=== PATIENT | male | born 1965 | race Caucasian/White ===

== ENCOUNTER → 2019-01-08 16:03 | Outpatient (CLI) | payer OTHER, SELFPAY ==
--- NOTE | 2019-01-08 16:45 | MRI_ITS ---
STUDY: MRI BRAIN WITH AND WITHOUT CONTRAST REASON FOR EXAM: Male, 53 years old. Diminished smell TECHNIQUE: Standardized multiplanar fat and water weighted pulse sequences were obtained. 17cc Dotarem iv was administered for the contrast portion of the examination. COMPARISON: None. FINDINGS: Normal size of the ventricles and extra-axial spaces for the patient's age. Normal white matter tracts of the supratentorial brain. Normal bilateral basal ganglia. Normal thalami. There is no extra-axial fluid accumulation. Normal flow voids within the major intracranial circulation suggesting patency by spin echo criteria. Normal venous enhancement. There is no enhancing intra-axial or extra-axial abnormality. Empty sella deformity of uncertain clinical significance. Normal, infundibular stalk, optic chiasm and hypothalamus. Normal tectal plate and pineal gland. Normal midbrain, kyle and medulla. Normal cerebellum. Normal basal cisterns. Normal bilateral temporal bones. Normal bilateral internal auditory canals. No demonstrated orbital abnormality, within the constraints of a routine brain study. There is a small mucous retention cyst in the right maxillary sinus. There is minor mucosal thickening within the ethmoid and sphenoid sinuses.. Normal calvarium and skull base. Normal visualized soft tissue structures. Normal visualized upper cervical spine. MRI/Brain W/WO Contrast IMPRESSION: Empty sella deformity of uncertain significance Otherwise normal MRI of the brain with without contrast. Mild right maxillary and bilateral ethmoid and sphenoid sinus disease Electronically Signed: Malcolm Valencia MD at 18:20 EST , Service support ,
== END ==
PROVIDERS: Referring Provider Otolaryngology Otolaryngology/Facial Plastic Surgery; Visit Provider Otolaryngology Otolaryngology/Facial Plastic Surgery
DX: R43.0 Anosmia (principal)
CPT/HCPCS: 70553; A9575

== ENCOUNTER → 2019-01-27 16:21 | Outpatient (CLI) | payer OTHER, SELFPAY ==
[2015-12-01 07:28] VITALS: BMI 30.9
--- NOTE | 2019-01-27 16:32 | EKG12_ITS ---
Test Reason : PREOP Blood Pressure : / mmHG Vent. Rate : 077 BPM Atrial Rate : 077 BPM P-R Int : 168 ms QRS Dur : 090 ms QT Int : 388 ms P-R-T Axes : 062 047 047 degrees QTc Int : 439 ms Normal sinus rhythm Normal ECG Confirmed by KENYA KLINE, YOVANY ([id number]), supervising editor news reel SETH SALAS [id number]) on 01/28/2019 9:43:53 AM Referred By: Luis Espinoza Confirmed By:YOVANY ZAMBRANO MD
[2019-01-27 17:07] LABS: Hematocrit 44.1 % (40-54); Mean Corp Hgb Conc 36.3 g/dL (32-36); Mean Corpuscular Volume 93.6 fL (80-94); Mean Platelet Vol. 9.7 fl (6.2-12.0); Platelet Count 179 K/mm3 (150-450); RBC Distribution Width CV 12.1 % (11.6-14.6); RBC Distribution Width SD 41.7 fl (35.1-43.9); Red Blood Count 4.71 M/mm3 (4.6-6.2)
[2019-01-27 17:21] LABS: Anion Gap 5 (5-15); BUN 24 mg/dL (7-18); Calcium,Total 8.6 mg/dL (8.5-10.1); Chloride 111 mmol/L (98-107); Creatinine, Serum 1.71 mg/dL (0.70-1.30); EST Glomerular Filtration Rate 44 mL/min (>60); Est Glom Filt Rate - Afr Amer 54 mL/min (>60); Glucose 94 mg/dL (74-106); Potassium 3.6 mmol/L (3.5-5.1); Sodium Level 143 mmol/L (136-145)
== END ==
LOC: LABSPEC 16:25 → LAB 16:26
PROVIDERS: Referring Provider Otolaryngology Otolaryngology/Facial Plastic Surgery; Visit Provider Otolaryngology Otolaryngology/Facial Plastic Surgery
DX: Z01.818 Encounter for other preprocedural examination (principal)
CPT/HCPCS: 36415; 80048; 85027; 93005

== ENCOUNTER → 2019-02-06 15:52 | Outpatient (CLI) | payer OTHER, SELFPAY ==
[2015-12-01 07:28] VITALS: BMI 30.9
--- NOTE | 2019-02-04 14:00 | SEP_PTH ---
PATIENT: APRIL WADE LOC: [facility] U#:[id number] AGE/SX: 59/M ROOM: RE02/06/[address]: Dr. Luis Espinoza MD : 1965 BED: DIS: SPEC #: [id number] RECD: 02/06/19 15:35 STATUS: ALLISON VIVEK #: [id number] ASHLEY: 02/04/19 14:[address]: Luis Espinoza DEPT: SURGICAL PATHOLOGY RECD BY: Desmond Berry ENTERED: 02/07/19 12:36 SP TYPE: SEPTUM OTHR DR: Dr. Margoth Craft, [facility] Tissues: Nasal septum, NOS Procedures: Decalcification bone/plaque Surgery Specimen Level III HEADER OPERATION: Septoplasty, resection inferior turbinates PRE-OP DIAGNOSIS: Deviated nasal septum, nasal congestion, hypertrophy of nasal turbinates TISSUE SUBMITTED: Septum MICROSCOPIC DIAGNOSIS Septum: Fragments of cartilage, clinically deviated nasal septum. SJ:juan carlos 02/12/19 MICROSCOPIC DESCRIPTION Slides are reviewed. GROSS DESCRIPTION Received is one container labeled with the patient's name and not further designated. The specimen consists of multiple fragments of cartilage and bone that in aggregate measure 2.5 x 1 x 0.3 cm. The entire specimen is submitted in one cassette after decalcification. / DAISHA:juan carlos 02/07/19 TC:5 CPT: 38233, 71704
== END ==
PROVIDERS: Referring Provider Otolaryngology Otolaryngology/Facial Plastic Surgery; Visit Provider Otolaryngology Otolaryngology/Facial Plastic Surgery
DX: J34.2 Deviated nasal septum (principal); J34.3 Hypertrophy of nasal turbinates; R09.81 Nasal congestion
CPT/HCPCS: 88304; 88311